=== PATIENT | female | born 2000 | race African-American/Black ===

== ENCOUNTER 2023-04-19 05:56 | Emergency (ER) | payer OTHER, SELFPAY ==
[2023-04-19 06:02] VITALS: BP 137/92; PULSE 80; RESP 18; TEMP 36.2; BMI 43.0
[2023-04-19 06:12] LABS: Adenovirus NOT DETECTED (NOT DETECTE); Bordetella parapertussis NOT DETECTED (NOT DETECTE); Coronavirus 229E NOT DETECTED (NOT DETECTE); Coronavirus HKU1 NOT DETECTED (NOT DETECTE); Coronavirus NL63 NOT DETECTED (NOT DETECTE); Coronavirus OC43 NOT DETECTED (NOT DETECTE); Human Metapneumovirus NOT DETECTED (NOT DETECTE); Influenza A NOT DETECTED (NOT DETECTE); Influenza B NOT DETECTED (NOT DETECTE); Mycoplasma pneumoniae NOT DETECTED (NOT DETECTE); Parainfluenza Virus 1 NOT DETECTED (NOT DETECTE); Parainfluenza Virus 2 NOT DETECTED (NOT DETECTE); Parainfluenza Virus 3 NOT DETECTED (NOT DETECTE); Parainfluenza Virus 4 NOT DETECTED (NOT DETECTE); Respiratory Syncytial Virus NOT DETECTED (NOT DETECTE); SARS-CoV-2 NOT DETECTED (NOT DETECTE)
--- NOTE | 2023-04-19 06:38 | ED.GENADUL1 ---
HPI - General Adult General Chief complaint: Shortness of Breath/Dyspnea Stated complaint: CHEST AND SINUSES CONGESTION Time Seen by Provider: 04/19/23 06:37 Source: patient Mode of arrival: walk-in Limitations: no limitations History of Present Illness HPI narrative: significant other had a baby last PM. Patient noticed nasal congestion and scratchy throat yesterday. This AM feels worse. More congestion. No cough or dyspnea. No abdominal pain or nausea/vomiting. Wanted to be checked because of the new born Related Data Home Medications Medication Instructions Recorded Confirmed atorvastatin 10 mg tablet (Lipitor) 10 mg PO DAILY 04/19/23 04/19/23 empagliflozin 25 mg tablet 25 mg PO DAILY 04/19/23 04/19/23 (Jardiance) Previous Rx's Medication Instructions Recorded loratadine 5 mg-pseudoephedrine ER 1 tab PO Q12H PRN nasal congestion 04/19/23 120 mg tablet,extended #20 tabs release,12hr (Claritin-D 12 Hour) Allergies Allergy/AdvReac Type Severity Reaction Status Date / Time No Known Drug Allergies Allergy Verified 04/19/23 06:06 Review of Systems ROS Status of ROS 10 or more systems reviewed and unremarkable except as noted in history and below PFSH PFS Social History Smoking status: Current every day smoker Exam Constitutional Vital Signs, click to edit/add: Last Vital Signs Temp 97.2 F L 04/19/23 06:02 Pulse 80 04/19/23 06:02 Resp 18 04/19/23 06:02 BP 137/92 H 04/19/23 06:02 Common normals: no apparent distress, oriented x3, no limitations, healthy appearing, alert and well nourished [facility] Common normals: normocephalic and head/scalp atraumatic Eye Common normals: EOMs intact bilaterally and conjunctivae normal Respiratory Common normals: normal respiratory effort, no retractions, no use of accessory muscles and clear to auscultation bilaterally Cardio Common normals: regular rate, regular rhythm, S1 normal heart sound and S2 normal heart sound GI Common normals: Normal to inspection, nondistended, normoactive bowel sounds present, soft to palpation and non-tender Extremity Common normals: normal to inspection and full ROM Neuro Common normals: oriented x3, CN's II-XII intact bilaterally, moves all extremities and no focal motor deficits Psych Appearance: grossly normal Course Vital Signs Vital signs: Vital Signs Temperature 97.2 F L 04/19/23 06:02 Pulse Rate 80 04/19/23 06:02 Respiratory Rate 18 04/19/23 06:02 Blood Pressure 137/92 H 04/19/23 06:02 Temperature 97.2 F L 04/19/23 06:02 Pulse Rate 80 04/19/23 06:02 Respiratory Rate 18 04/19/23 06:02 Blood Pressure 137/92 H 04/19/23 06:02 Medical Decision Making MDM Narrative Medical decision making narrative: patient presents with URI symptoms. partner had a baby last PM and patient wanted to be checked. 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 Exam is unremarkable and patient is in no respiratory distress. Nasal swab respiratory panel ordered and pending Lab Data Labs: Lab Results 04/19/23 Range/Units 06:06 Adenovirus (PCR) Not detected (NOT DETECTE) C. pneumoniae DNA (PCR) Not detected (NOT DETECTE) Coronavirus Type OC43 Not detected (NOT DETECTE) Coronavirus Type HKU1 Not detected (NOT DETECTE) Coronavirus Type 229E Not detected (NOT DETECTE) Coronavirus Type NL63 Not detected (NOT DETECTE) Human Metapneumovir PCR Not detected (NOT DETECTE) M. pneumoniae (PCR) Not detected (NOT DETECTE) Parainfluenza PCR Not detected (NOT DETECTE) Parainfluenza 2 (PCR) Not detected (NOT DETECTE) Parainfluenza 3 (PCR) Not detected (NOT DETECTE) Parainfluenza 4 (PCR) Not detected (NOT DETECTE) RSV (RT-PCR) Not detected (NOT DETECTE) Entero/Rhino (PCR) Detected A (NOT DETECTE) SARS-CoV-2 (PCR) Not detected (NOT DETECTE) Bordetella pertussis (PCR) Not detected (NOT DETECTE) B parapertussis DNA PCR Not detected (NOT DETECTE) Influenza Type A (PCR) Not detected (NOT DETECTE) Influenza Type B (PCR) Not detected (NOT DETECTE) Discharge Plan Discharge Chief Complaint: Shortness of Breath/Dyspnea Clinical Impression: URI (upper respiratory infection) Patient Disposition: Home, Self-Care Time of Disposition Decision: 07:19 Condition: Good Mode of Transportation: Private Vehicle Prescriptions / Home Meds: New Claritin-D 12 Hour 5-120 mg tablet extended release 12 hr 1 tab PO Q12H PRN (Reason: nasal congestion) Qty: 20 0RF No Action Jardiance 25 mg tablet 25 mg PO DAILY atorvastatin [Lipitor] 10 mg tablet 10 mg PO DAILY Instructions: Upper Respiratory Infection (ED) Stand Alone Forms: Portal Instructions Referrals: Physician,Non-Staff, MD [Primary Care Provider] - 1 week Discharge Date/Time: 04/19/23 07:25
[2023-04-19 07:08] LABS: Human Rhinovirus/Enterovirus DETECTED (NOT DETECTE)
--- NOTE | 2023-04-19 07:20 | ED_ITS ---
HPI - SOB/Dyspnea General Chief Complaint: Shortness of Breath/Dyspnea Stated Complaint: CHEST AND SINUSES CONGESTION Time Seen by Provider: 04/19/23 06:37 Source: patient Mode of arrival: walk-in Limitations: no limitations History of Present Illness HPI Narrative: the patient was initially seen by Dr. Levy and signed out to me after discussing the case with him thoroughly. Please see his full history and phys ical. Related Data Home Medications Medication Instructions Recorded Confirmed atorvastatin 10 mg tablet (Lipitor) 10 mg PO DAILY 04/19/23 04/19/23 empagliflozin 25 mg tablet 25 mg PO DAILY 04/19/23 04/19/23 (Jardiance) Previous Rx's Medication Instructions Recorded loratadine 5 mg-pseudoephedrine ER 1 tab PO Q12H PRN nasal congestion 04/19/23 120 mg tablet,extended #20 tabs release,12hr (Claritin-D 12 Hour) Allergies Allergy/AdvReac Type Severity Reaction Status Date / Time No Known Drug Allergies Allergy Verified 04/19/23 06:06 PFSH PFSH Social History Smoking status: Current every day smoker Exam Constitutional Vital Signs, click to edit/add: Last Vital Signs Temp 97.2 F L 04/19/23 06:02 Pulse 80 04/19/23 06:02 Resp 18 04/19/23 06:02 BP 137/92 H 04/19/23 06:02 Course Vital Signs Vital signs: Vital Signs Temperature 97.2 F L 04/19/23 06:02 Pulse Rate 80 04/19/23 06:02 Respiratory Rate 18 04/19/23 06:02 Blood Pressure 137/92 H 04/19/23 06:02 Temperature 97.2 F L 04/19/23 06:02 Pulse Rate 80 04/19/23 06:02 Respiratory Rate 18 04/19/23 06:02 Blood Pressure 137/92 H 04/19/23 06:02 MDM - SOB/Dyspnea MDM Narrative Medical decision making narrative: The respiratory panel shows presence of rhinovirus only. Findings are discussed with the patient. There is no indication for antibiotic and she'll be treated symptomatically. Differential Diagnosis Differential diagnosis: Likely other (viral upper respiratory infection, Covid) Lab Data Attestation: I reviewed the patient's lab results. Labs: Lab Results 04/19/23 Range/Units 06:06 Adenovirus (PCR) Not detected (NOT DETECTE) C. pneumoniae DNA (PCR) Not detected (NOT DETECTE) Coronavirus Type OC43 Not detected (NOT DETECTE) Coronavirus Type HKU1 Not detected (NOT DETECTE) Coronavirus Type 229E Not detected (NOT DETECTE) Coronavirus Type NL63 Not detected (NOT DETECTE) Human Metapneumovir PCR Not detected (NOT DETECTE) M. pneumoniae (PCR) Not detected (NOT DETECTE) Parainfluenza PCR Not detected (NOT DETECTE) Parainfluenza 2 (PCR) Not detected (NOT DETECTE) Parainfluenza 3 (PCR) Not detected (NOT DETECTE) Parainfluenza 4 (PCR) Not detected (NOT DETECTE) RSV (RT-PCR) Not detected (NOT DETECTE) Entero/Rhino (PCR) Detected A (NOT DETECTE) SARS-CoV-2 (PCR) Not detected (NOT DETECTE) Bordetella pertussis (PCR) Not detected (NOT DETECTE) B parapertussis DNA PCR Not detected (NOT DETECTE) Influenza Type A (PCR) Not detected (NOT DETECTE) Influenza Type B (PCR) Not detected (NOT DETECTE) Discharge Plan Discharge Chief Complaint: Shortness of Breath/Dyspnea Clinical Impression: URI (upper respiratory infection) Patient Disposition: Home, Self-Care Time of Disposition Decision: 07:19 Condition: Good Mode of Transportation: Private Vehicle Prescriptions / Home Meds: New Claritin-D 12 Hour 5-120 mg tablet extended release 12 hr 1 tab PO Q12H PRN (Reason: nasal congestion) Qty: 20 0RF No Action Jardiance 25 mg tablet 25 mg PO DAILY atorvastatin [Lipitor] 10 mg tablet 10 mg PO DAILY Instructions: Upper Respiratory Infection (ED) Stand Alone Forms: Portal Instructions Referrals: Physician,Non-Staff, MD [Primary Care Provider] - 1 week
== END 2023-04-19 07:25 | disposition home or self-care (01) ==
PROVIDERS: Internal Medicine; Emergency Provider Emergency Medicine
DX: J06.9 Acute upper respiratory infection, unspecified (principal); F17.210 Nicotine dependence, cigarettes, uncomplicated; Z79.899 Other long term (current) drug therapy; Z20.822 Contact with and (suspected) exposure to COVID-19; B97.89 Other viral agents as the cause of diseases classified elsewhere
CPT/HCPCS: 0202U; 99283